=== PATIENT | male | born 1965 | race American Indian/Alaskan Native ===

== ENCOUNTER 2016-08-07 11:24 | Inpatient (IN) | payer OTHER ==
--- NOTE | ~2016-08-07 | DS ---
Unit #: [id number] #: [id number] Patient: JONATHON GEIGER [id number] [facility] [address] [place] [address] [id number] MR#: [id number] NAME: JONATHON GEIGER ROOM: [facility] Age: 51 Sex: M Admission Date: 08/07/2016 : 1965 Discharge Date: 08/08/2016 Attending Physician: Javan Martins M.D. Primary Care Physician: Generic Doctor Not In System DISCHARGE SUMMARY REASON FOR ADMISSION The patient is a 51-year-old white male, admitted to the [facility] unit after he had made suicidal threats. HOSPITAL COURSE The patient was admitted to the [address] [place] [address] unit and placed on suicide precautions. A routine detoxification protocol was ordered. The patient had voiced some suicidal ideation and it stated that he had held a gun to his arm accordingly. One of the conditions of discharge was that the firearm should be removed from the home. The patient assured this physician that this had taken place and neonatal social worker did, in fact, contact the patient's "life partner" in order to make certain that guns would be removed from the home. The patient was contrite over this episode over his behavior on 08/08/2016 and requested discharge. He at that point exhibited no signs or symptoms of withdrawal. As per his request, discharge was ordered. FINAL DIAGNOSES Opioid use disorder, sedative hypnotic use disorder, hypertension. History of heart condition. DISPOSITION ON DISCHARGE No psychotropic or other medications ordered at time discharge. FOLLOWUP Followup will take place through the auspices of community mental health and chemical dependency treatment resources. PROGNOSIS The patient's prognosis considered fair. As noted previously, firearms will be removed from the home as a condition of the patient's discharge drills. Dictated by... Javan Martins M.D. CB/biju TD: 08/09/2016 04:23 JOB #: [id number] Unit #: [id number] #: [id number] Patient: JONATHON GEIGER DISCHARGE SUMMARY X Javan Martins MD X DISCHARGE SUMMARY
--- NOTE | ~2016-08-07 | HP ---
Unit #: [id number] #: [id number] Patient: JOHN GEIGER [id number] [place] [address] [id number] I MR#: [id number] NAME: JOHN GEIGER ROOM: P210 Age: 51 Sex: M Admission Date: 08/07/2016 : 1965 Attending Physician: Javan Martins M.D. Admitting Physician: Javan Martins M.D. Primary Care Physician: Tammie Doctor Not In System HISTORY AND PHYSICAL HISTORY OF PRESENT ILLNESS John is a 51 year old admitted to [address] [place] [address] because of his polysubstance abuse which includes alcohol and opioids. PAST MEDICAL HISTORY 1. Long history of polysubstance abuse. 2. Peptic ulcer disease. a. Gastric surgery. PAST SURGICAL HISTORY 1. As above. 2. Appendectomy. 3. Inguinal hernia repair. 4. Vasectomy. ALLERGIES No known drug allergies. SOCIAL HISTORY He does not smoke. Drinks a fifth of vodka on a daily basis. Admits to using marijuana daily and has a long history of poly illicit substance abuse to includes opioids, amphetamines and benzodiazepines. FAMILY HISTORY Medically noncontributory. REVIEW OF SYSTEMS CONSTITUTIONAL: No fever or chills. HEENT: Denies any sore throat, ear pain or runny nose. CARDIOVASCULAR: Denies chest pain, irregular heart rhythm or palpitations. CHEST: Denies shortness of breath or cough. No hemoptysis. GASTROINTESTINAL: Denies nausea, vomiting, diarrhea or chronic constipation. ENDOCRINE: Denies history of increased thirst or urination. No recent significant weight loss or gain. GENITOURINARY: Denies dysuria, frequency, or hematuria. SKIN: Denies any rashes. HEMATOLOGIC: Denies history of increased bleeding or bruising. MUSCULOSKELETAL: Denies any hot, swollen joints. No generalized muscle pain. NEUROLOGIC: Denies problems with vision or speech. No frequent, severe headaches. No numbness, tingling or weakness in any extremities. Denies Unit #: [id number] #: [id number] Patient: JOHN GEIGER loss of bladder or bowel control. CURRENT MEDICATIONS Detox protocol PHYSICAL EXAMINATION GENERAL: Alert, well-nourished, in no apparent distress. VITAL SIGNS: Blood pressure 124/84, heart rate 100, respirations 16, temperature 98.6. WEIGHT: 145 pounds. HEIGHT: 5'7". SKIN: Warm and dry without rash or lesion. HEENT: Normocephalic. TMs not viewed. Oral and nasal passages clear. Conjunctivae clear. Pupils equal, round and reactive to light and accommodation. Extraocular movements intact. NECK: Supple without lymphadenopathy or thyromegaly. HEART: Regular rate and rhythm without murmur. LUNGS: Clear. ABDOMEN: Soft, nontender. : Not done. EXTREMITIES: No evidence of cyanosis, clubbing or edema. Moves all extremities without focal deficit. NEUROLOGICAL: Grossly within normal limits. Cranial Nerves: II: Visual lizarraga are intact. III, IV AND : Extraocular movements are intact. Pupils are equal, round and reactive to light. V: Facial sensation is grossly normal. VII: Facial movements and expression are normal. VIII: Auditory acuity grossly intact. IX, X: Uvula is midline. Phonation is normal. XI: Patient shrugs shoulders and turns head normally. XII: Tongue protrudes in the midline. Sensory and Motor Function: Sensory and motor sensation is grossly normal. Motor: moves all extremities well. Coordination: Gait is normal. Deep Tendon Reflexes: Intact. IMPRESSION Psychiatric admission RECOMMENDATIONS PSYCHIATRIC: Per psychiatrist. MEDICAL: I see no contraindications to participating in facility's activities. MEDICAL PROGNOSIS Good. MEDICAL CONDITION Stable. Dictated by... Jazmín Prakash P.A.-C. for [facility] [place]/bebeto Unit #: [id number] #: [id number] Patient: JOHN GEIGER TD: 08/08/2016 04:38 JOB #: [id number] HISTORY AND PHYSICAL X Jazmín Prakash X HISTORY AND PHYSICAL
--- NOTE | ~2016-08-07 | PA ---
Unit #: [id number] #: [id number] Patient: JONATHON GEIGER [id number] [facility] [address] [place] [address] [id number] I MR#: [id number] NAME: JONATHON GEIGER ROOM: [facility] Age: 51 Sex: M Admission Date: 08/07/2016 : 1965 Date of Assessment: 08/07/2016 Attending Physician: Javan Martins M.D. Admitting Physician: Javan Martins M.D. Primary Care Physician: Generic Doctor Not In System PSYCHIATRIC ASSESSMENT IDENTIFYING INFORMATION The patient is a 51-year-old white male admitted to the [address] [place] [address] unit with increasing alcohol and benzodiazepine abuse. CHIEF COMPLAINT None given. INFORMANT(S) The patient and chart, reliability good. HISTORY OF PRESENT ILLNESS The patient is a 51-year-old male who was admitted after presenting to this facility reporting increasing use of alcohol and benzodiazepines. The patient reports that a friend has recently returned from rehabilitation treatment in [place]. The patient wishes to discontinue his use of psychiatric substances. 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 He was recently fired from his job at [employer] over disagreement over his working hours. The patient reports that "a couple of weeks ago I had a gun to my head and tried to blow my brains out but I missed and got my thumb a little." The patient reports that he has access to several guns and has on multiple occasions attempted to place the gun in his mouth. He also reports overdose attempt in 2014. The patient reported that his plan for his birthday yesterday was to kill himself with one of his guns. He was going to duck tape it to his mouth so he could not change his mind. When seen today the patient denies all of these issues related to the firearm and states that he has access to only one firearm which he has never used in any suicide attempt. The patient reports history of treatment in the with "placidyl, norpramin, and Sinequan but has not been on antidepressant or other psychotropic medications since. The patient states that he is used virtually all substances in the past. He has used methamphetamine, methadone, opiates and reports that he continues to have "access" to benzodiazepines and opiates. He lives with his common-law of seven months per his report. PAST PSYCHIATRIC HISTORY As above. PAST MEDICAL HISTORY The patient complains of rapid heart rate. MEDICATIONS None. Unit #: [id number] #: [id number] Patient: JONATHON GEIGER ALLERGIES None. FAMILY HISTORY The patient denies family history of psychiatric illness. SOCIAL HISTORY The patient is originally from [place], [place]. He now resides in [place]. 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 He reports substance use as noted previously and is a smoker. MENTAL STATUS EXAMINATION At this time reveals the patient to be a well-developed, well-nourished white male, appearing his stated age. He is in no apparent physical distress at the time of examination. He is awake, alert, and oriented in all spheres. His mood is mildly dysphoric and a bit irritable. His affect congruent. Speech is generally relevant and coherent. There are no gross deficits in memory or cognition noted. Intelligence is judged to be in the average range based on fund of knowledge. The patient is cooperative throughout the interview though frequently inconsistent in his description of events leading to hospitalization. He is currently denying suicidal or homicidal ideation and denies any psychotic symptoms. His judgement and insight appear to be reasonably intact. ASSETS AND LIABILATIES ASSETS: To be assessed. LIABILITIES: Lack of resources. DIAGNOSTIC IMPRESSION 1. Alcohol use disorder. 2. Sedative hypnotic use disorder. 3. Dysthymic disorder. TREATMENT PLAN The patient will remain hospitalized for safety and stabilization. I will ask the patient's social services specialist to contact his regarding removal of firearms from the home and had placed the patient on a routine detoxification protocol for alcohol. ESTIMATED LENGTH OF STAY Three to five days. Dictated by... Javan Martins M.D. Deann TD: 08/07/2016 23:37 JOB #: [id number] Unit #: [id number] #: [id number] Patient: JONATHON GEIGER PSYCHIATRIC ASSESSMENT X Javan Martins MD X PSYCHIATRIC ASSESSMENT
[2016-08-08 09:40] LABS: BASOPHIL% 1.1 % (0-2.5); EOSINOPHIL# 0.2 X10e3 (0-0.7); EOSINOPHIL% 3.4 % (0.0-7.0); HEMATOCRIT 45.6 % (38.0-50.0); HEMOGLOBIN 15.5 gm/dL (13.0-16.0); LYMPHOCYTE# 1.5 X10e3 (1.0-3.5); LYMPHOCYTE% 33.1 % (17.0-45.0); MEAN CELL VOLUME 97.9 FL (83-96); MEAN CORPUSCULAR HEMOGLOBIN 33.1 PG (28-34); MEAN CORPUSCULAR HGB CONC 33.9 g/dL (30-36); MEAN PLATELET VOLUME 6.5 FL (6.5-11.5); MONOCYTE# 0.5 X10e3 (0-1.0); MONOCYTE% 10.1 % (3.0-12.0); NEUTROPHIL# 2.4 X10e3 (1.5-7.1); NEUTROPHIL% 52.3 % (40-75); PLATELET COUNT 220 X10e3 (140-420); RED BLOOD COUNT 4.66 X10e (3.90-5.60); RED CELL DISTRIBUTION WIDTH 13.4 % (11.0-15.5); WHITE BLOOD COUNT 4.6 X10e3 (4.0-10.5)
[2016-08-08 09:40] LABS: URINE APPEARANCE CLEAR; URINE BILIRUBIN NEG (NEG); URINE BLOOD NEG (NEG); URINE COLOR YELLOW; URINE GLUCOSE NEG (NEG); URINE KETONE NEG (NEG); URINE LEUKOCYTE ESTERASE NEG (NEG); URINE NITRATE NEG (NEG); URINE PROTEIN NEG (NEG); URINE SPECIFIC GRAVITY 1.007 (1.003-1.035); URINE UROBILINOGEN 0.2 MG/DL (NEG)
[2016-08-08 09:47] LABS: DIFF IND NO
[2016-08-08 10:04] LABS: THYROID STIMULATING HORMONE 2.38 uIU/ml (0.34-5.60)
[2016-08-08 10:07] LABS: ALBUMIN SERUM 4.2 g/dL (3.5-5.0); ALKALINE PHOSPHATASE 47 U/L (32-92); ALT (SGPT) 55 U/L (10-40); AST (SGOT) 96 U/L (10-42); BILIRUBIN,TOTAL 0.9 mg/dL (0.2-2.0); BLOOD UREA NITROGEN 13 mg/dL (9-23); CALCIUM SERUM 8.8 mg/dL (8.4-10.2); CARBON DIOXIDE 30 mmol/L (22-31); CHLORIDE 96 mmol/L (100-111); GLOM FILT RATE Estimated ABOVE60 mL/min (>60); GLUCOSE FASTING 176 mg/dL (70-110); POTASSIUM 3.4 mmol/L (3.5-5.1); PROTEIN TOTAL SERUM 6.7 g/dL (6.0-8.3); SODIUM 135 mmol/L (135-145)
[2016-08-08 10:11] LABS: FREE THYROXIN (T4) 0.53 ng/dL (0.58-1.64)
[2016-08-08 10:44] LABS: AMPHETAMINE NEG (NEG); BARBITURATES NEG (NEG); BENZODIAZEPINES POS (NEG); COCAINE NEG (NEG); MARIJUANA NEG (NEG); OPIATES NEG (NEG); TRICYCLIC ANTIDEPRESSANTS NEG (NEG); U METHADONE NEG (NEG)
== END 2016-08-08 14:35 | disposition home or self-care (01) | DRG 897 ==
LOC: P2S 11:24
PROVIDERS: Specialist
PROC: HZ2ZZZZ Detoxification Services for Substance Abuse Treatment (ICD-10-PCS; principal; 2016-08-07)
DX: F10.20 Alcohol dependence, uncomplicated (principal); F11.20 Opioid dependence, uncomplicated; F13.20 Sedative, hypnotic or anxiolytic dependence, uncomplicated; I10 Essential (primary) hypertension; F34.1 Dysthymic disorder
CPT/HCPCS: 80053; 80307; 81003; 84439; 84443; 85025; 86592